=== PATIENT | female | born 1945 | race Caucasian/White ===

== ENCOUNTER 2025-05-13 03:09 | Emergency (ER) | payer MEDICARE, MEDICAID ==
[~2025-05-13] VITALS: Ht 165.1 cm; Wt 64.0 kg
[2025-05-13 03:10] VITALS: O2SAT 99
[2025-05-13] MEDS: LOPERAMIDE HCL 2MG CAPSULE PO ONE (03:57)
[2025-05-13] MEDS: AZITHROMYCIN 500 MG TABLET PO ONE (03:57)
[2025-05-13] MEDS: ONDANSETRON HCL 4MG/2ML INJ IV ONE (03:57)
[2025-05-13] MEDS: LACTATED RINGERS 1,000 ML IV SCH (03:58)
[2025-05-13] MEDS: KETOROLAC 15MG/ML VIAL IV ONE (03:58)
[2025-05-13 04:01] LABS: BASOPHILS % 0.2 % (0.0-2.0); EOSINOPHILS % 1.5 % (0.0-5.0); HEMATOCRIT. 39.9 % (36.0-48.0); HEMOGLOBIN. 13.4 g/dL (12.0-16.0); LYMPHOCYTES % 12.1 % (20.0-50.0); MEAN PLATELET VOLUME 6.8 fl (7.4-10.4); MONOCYTES % 10.9 % (2.0-8.0); NEUTROPHILS % 75.3 % (40.0-76.0); PLATELET 322 x1000/uL (130-400); RED BLOOD CELL COUNT 4.31 mill/uL (4.2-5.4); RED CELL DISTRIBUTION WIDTH 13.2 % (11.6-14.6)
[2025-05-13 04:15] LABS: CREATININE 1.1 mg/dL (0.6-1.0)
[2025-05-13 04:16] LABS: UREA NITROGEN BLOOD 18 mg/dL (9-23)
[2025-05-13 04:17] LABS: ASPARTATE AMINOTRANSFERASE 35 IU/L (<34); PHOSPHORUS 3.0 mg/dL (2.5-4.9)
[2025-05-13 04:18] LABS: BILIRUBIN TOTAL 1.0 mg/dL (0.1-1.0); PROTEIN TOTAL 7.2 g/dL (6.0-8.3)
[2025-05-13 05:30] VITALS: BP 143/69; PULSE 69; RESP 16; TEMP 36.7; O2SAT 97
[2025-05-13] MEDS ORDERED: ONDA-239 PO (05:40)
[2025-05-13] MEDS ORDERED: LOPE2CAP MT (05:40)
[2025-05-13] MEDS ORDERED: AZIT500T8 MT (05:40)
== END 2025-05-13 05:50 | disposition home or self-care (01) ==
LOC: ER 03:09
DX: R11.2 Nausea with vomiting, unspecified (principal); R19.7 Diarrhea, unspecified; E87.1 Hypo-osmolality and hyponatremia; I21.29 ST elevation (STEMI) myocardial infarction involving other sites; K21.9 Gastro-esophageal reflux disease without esophagitis; Z88.0 Allergy status to penicillin
CPT/HCPCS: 99284; 96374; 96361; 96375; 80053; 83690; 83735; 84100; 85025; 36415; J1885; J2405

== ENCOUNTER 2025-05-18 22:29 | Inpatient (IN) | payer MEDICARE, MEDICAID ==
[~2025-05-18] VITALS: Ht 154.9 cm; Wt 57.4 kg
[~2025-05-18 22:29] MED LIST: AZIT500T8 MT; LOPE2CAP MT; ONDA-239 PO
[2025-05-18 22:32] VITALS: O2SAT 93
[2025-05-18] MEDS: SODIUM CHLORIDE 0.9% 1,000 ML IV ONE (23:50)
[2025-05-18] MEDS: ACETAMINOPHEN 325MG TABLET PO ONE (23:58)
[2025-05-18] MEDS: CEFTRIAXONE 1GM/50ML 50 ML IV ONE (23:59)
[2025-05-19] MEDS: ONDANSETRON HCL 4MG/2ML INJ IV ONE
[2025-05-19] MEDS: MORPHINE SULFATE 4 MG/ML INJ (FOR IV/IM USE) IV ONE
[2025-05-19 00:14] LABS: CREATININE 0.7 mg/dL (0.6-1.0); UREA NITROGEN BLOOD 8 mg/dL (9-23)
[2025-05-19 00:16] LABS: ASPARTATE AMINOTRANSFERASE 28 IU/L (<34); BILIRUBIN DIRECT 0.3 mg/dL (<=3.0); BILIRUBIN TOTAL 0.9 mg/dL (0.1-1.0); PROTEIN TOTAL 6.8 g/dL (6.0-8.3)
[2025-05-19 00:26] LABS: BASOPHILS % 0.4 % (0.0-2.0); EOSINOPHILS % 0.3 % (0.0-5.0); HEMATOCRIT. 36.7 % (36.0-48.0); HEMOGLOBIN. 12.4 g/dL (12.0-16.0); LYMPHOCYTES % 7.7 % (20.0-50.0); MEAN PLATELET VOLUME 7.6 fl (7.4-10.4); MONOCYTES % 7.2 % (2.0-8.0); NEUTROPHILS % 84.4 % (40.0-76.0); PLATELET 417 x1000/uL (130-400); RED BLOOD CELL COUNT 4.07 mill/uL (4.2-5.4); RED CELL DISTRIBUTION WIDTH 12.4 % (11.6-14.6)
[2025-05-19 00:33] LABS: INR 1.0
[2025-05-19 02:48] LABS: CLARITY URINE CLEAR (CLEAR); COLOR URINE YELLOW (YELLOW); GLUCOSE URINE NEGATIVE (NEGATIVE); KETONES URINE NEGATIVE (NEGATIVE); LEUKOCYTE ESTERASE URINE NEGATIVE (NEGATIVE); NITRITE URINE NEGATIVE (NEGATIVE); OCCULT BLOOD URINE 1+ (NEGATIVE); PH URINE 7.0 (4.5-8.0); PROTEIN URINE NEGATIVE (NEGATIVE); SPECIFIC GRAVITY URINE 1.005 (1.005-1.030); UROBILINOGEN URINE 1.0 E.U./dL (0.2-1.0)
[2025-05-19] MEDS: MINERAL OIL ENEMA 133ML PR ONE (03:46)
[2025-05-19] MEDS: GLYCERIN ADULT SUPPOSITORY PR ONE (05:44)
[2025-05-19 05:50] LABS: BACTERIA URINE NONE SEEN; SQUAMOUS EPITHELIAL CELL URINE NONE SEEN /lpf (RARE/1+); WBC URINE 0-2 /hpf (0-2)
[2025-05-19 08:44] LABS: INFLUENZA TYPE A Presumptive Negative (Pres. Neg.); INFLUENZA TYPE B Presumptive Negative (Pres. Neg.); RESPIRATORY SYNCYTIAL VIRUS Not Detected (Not Detectd)
[2025-05-19 12:00] VITALS: BP 123/101; PULSE 85; RESP 20; TEMP 37.2; O2SAT 99
[2025-05-19 15:01] VITALS: BP 123/101; PULSE 85; RESP 20; TEMP 37.1964
[2025-05-19] MEDS ORDERED: IPRATROPIUM/ALBUTEROL 0.5-3(2.5)MG/3ML NEB HHN PRN (16:00)
[2025-05-19] MEDS ORDERED: ONDANSETRON HCL 4MG/2ML INJ IV PRN (16:00)
[2025-05-19 16:29] VITALS: BP 158/84; PULSE 78; RESP 20; TEMP 36.1; O2SAT 98
[2025-05-19] MEDS: DEXT 5%/0.45% NACL 1000ML 1,000 ML IV SCH (17:08)
[2025-05-19] MEDS: HYDROCODONE/ACETAMINOPHEN 5/325MG TABLET PO PRN (17:18)
[2025-05-19] MEDS: LEVOFLOXACIN 500MG PREMIX 100 ML IV SCH (17:18)
[2025-05-19] MEDS ORDERED: OMEP20TA23 PO (19:37)
[2025-05-19] MEDS ORDERED: LIP40 PO (19:37)
[2025-05-19 20:00] VITALS: BP 129/78; PULSE 87; RESP 18; TEMP 37.2; O2SAT 97
[2025-05-20] VITALS: BP 131/72; PULSE 84; RESP 18; TEMP 37.1; O2SAT 96
[2025-05-20 04:00] VITALS: BP 137/77; PULSE 85; RESP 20; TEMP 37; O2SAT 97
[2025-05-20 08:00] VITALS: BP 112/69; PULSE 85; RESP 20; TEMP 37.2; O2SAT 98
[2025-05-20 08:55] LABS: BASOPHILS % 0.3 % (0.0-2.0); EOSINOPHILS % 1.1 % (0.0-5.0); HEMATOCRIT. 35.7 % (36.0-48.0); HEMOGLOBIN. 11.9 g/dL (12.0-16.0); LYMPHOCYTES % 15.6 % (20.0-50.0); MEAN PLATELET VOLUME 7.4 fl (7.4-10.4); MONOCYTES % 12.5 % (2.0-8.0); NEUTROPHILS % 70.5 % (40.0-76.0); PLATELET 413 x1000/uL (130-400); RED BLOOD CELL COUNT 3.92 mill/uL (4.2-5.4); RED CELL DISTRIBUTION WIDTH 12.9 % (11.6-14.6)
[2025-05-20 09:29] LABS: CREATINE KINASE MB FRACTION < 0.5 ng/mL (0.5-3.6); TROPONIN I HIGH SENSITIVITY < 4 ng/L (3.0-34)
[2025-05-20 09:33] LABS: CREATININE 0.8 mg/dL (0.6-1.0); UREA NITROGEN BLOOD 7 mg/dL (9-23)
[2025-05-20] MEDS: ENOXAPARIN 40MG/0.4ML SYR SUBCUT SCH (10:01)
[2025-05-20 12:00] VITALS: BP 127/75; PULSE 83; RESP 20; TEMP 36.6; O2SAT 97
[2025-05-20] MEDS: PANTOPRAZOLE 40MG DR TABLET PO SCH (13:15)
[2025-05-20] MEDS: DOCUSATE SODIUM 100MG CAPSULE PO SCH (13:45)
[2025-05-20] MEDS: POLYETHYLENE GLYCOL 3350 (17GM) 1 DOSE PACK PO SCH (13:45)
[2025-05-20] MEDS ORDERED: BISACODYL 10MG SUPP PR PRN (13:45)
[2025-05-20 16:41] VITALS: BP 134/69; PULSE 74; RESP 20; TEMP 37.1; O2SAT 96
[2025-05-20 20:00] VITALS: BP 151/85; PULSE 89; RESP 20; TEMP 36.5; O2SAT 98
[2025-05-20] MEDS: SENNOSIDES 8.6MG TABLET PO SCH (21:00)
[2025-05-20 22:51] LABS: CREATINE KINASE MB FRACTION 0.7 ng/mL (0.5-3.6); TROPONIN I HIGH SENSITIVITY < 4 ng/L (3.0-34)
[2025-05-21] VITALS: BP 144/69; PULSE 87; RESP 20; TEMP 36.7; O2SAT 98
[2025-05-21 04:00] VITALS: BP 139/79; PULSE 80; RESP 20; TEMP 36.8; O2SAT 98
[2025-05-21 08:00] VITALS: BP 142/86; PULSE 84; RESP 20; TEMP 36.1; O2SAT 100
[2025-05-21 11:57] VITALS: BP 128/84; PULSE 75; RESP 18; TEMP 36.1; O2SAT 99
[2025-05-21] MEDS ORDERED: *PATIENT'S OWN MEDICATION STORAGE XX SCH (13:00)
[2025-05-21 16:00] VITALS: BP 131/89; PULSE 81; RESP 18; TEMP 36.3; O2SAT 100
[2025-05-21 20:00] VITALS: BP 133/66; PULSE 91; RESP 18; TEMP 36.1; O2SAT 95
[2025-05-21] MEDS: HYDROCORTISONE 2.5% RECTAL CREAM 28GM PR SCH (21:46)
[2025-05-21] MEDS: DOCUSATE SODIUM 250MG CAPSULE PO SCH (21:46)
[2025-05-22] VITALS: BP 122/67; PULSE 79; RESP 18; TEMP 36.2; O2SAT 96
[2025-05-22 04:00] VITALS: BP 126/72; PULSE 80; RESP 18; TEMP 36.3; O2SAT 98
[2025-05-22 08:00] VITALS: BP 130/61; PULSE 69; RESP 18; TEMP 36.3; O2SAT 100
[2025-05-22 12:00] VITALS: BP 142/57; PULSE 64; RESP 20; TEMP 36.4; O2SAT 99
[2025-05-22] MEDS: NA PHOS,M-B/NA PHOS,DI-BA ENEMA 118ML PR SCH (15:43)
[2025-05-22 16:00] VITALS: BP 139/71; PULSE 67; RESP 18; TEMP 36.4; O2SAT 100
[2025-05-22 20:00] VITALS: BP 122/78; PULSE 65; RESP 18; TEMP 36.3; O2SAT 100
[2025-05-23] VITALS: BP 128/74; PULSE 67; RESP 18; TEMP 36.4; O2SAT 100
[2025-05-23 04:00] VITALS: BP 122/70; PULSE 66; RESP 17; TEMP 36.3; O2SAT 100
[2025-05-23 07:44] LABS: BASOPHILS % 0.8 % (0.0-2.0); EOSINOPHILS % 4.0 % (0.0-5.0); HEMATOCRIT. 34.4 % (36.0-48.0); HEMOGLOBIN. 11.6 g/dL (12.0-16.0); LYMPHOCYTES % 36.0 % (20.0-50.0); MEAN PLATELET VOLUME 6.4 fl (7.4-10.4); MONOCYTES % 14.2 % (2.0-8.0); NEUTROPHILS % 45.0 % (40.0-76.0); PLATELET 454 x1000/uL (130-400); RED BLOOD CELL COUNT 3.80 mill/uL (4.2-5.4); RED CELL DISTRIBUTION WIDTH 12.6 % (11.6-14.6)
[2025-05-23 08:00] VITALS: BP 151/81; PULSE 90; RESP 18; TEMP 36.1; O2SAT 100
[2025-05-23 08:04] LABS: CREATININE 0.8 mg/dL (0.6-1.0); UREA NITROGEN BLOOD < 5 mg/dL (9-23)
[2025-05-23 12:00] VITALS: BP 136/70; PULSE 80; RESP 18; TEMP 36.1; O2SAT 99
[2025-05-23] MEDS ORDERED: SENN-362 PO (14:07)
[2025-05-23] MEDS ORDERED: LEVO-65 MT (14:07)
[2025-05-23] MEDS ORDERED: ANUHCC PR (14:07)
[2025-05-23 14:17] VITALS: BP 136/70; PULSE 80; RESP 18; TEMP 97
[2025-05-23 16:00] VITALS: BP 139/78; PULSE 87; RESP 18; TEMP 36.1; O2SAT 100
== END 2025-05-23 17:00 | disposition home or self-care (01) | DRG 395 ==
LOC: ER 22:29 → 7WST 05-19 01:55 → EDBEDREQ 05-19 02:00 → EDBEDREQTM 05-19 02:00 → EDBEDREQDT 05-19 02:00 → ENRESERV 05-19 10:27 → 7WST 05-22 09:21
PROVIDERS: ADMIT Internal Medicine; ATTEND Internal Medicine
DX: K62.89 Other specified diseases of anus and rectum (principal); K56.41 Fecal impaction; Z20.822 Contact with and (suspected) exposure to COVID-19; K44.9 Diaphragmatic hernia without obstruction or gangrene; K21.9 Gastro-esophageal reflux disease without esophagitis; D64.9 Anemia, unspecified; G89.29 Other chronic pain; Z90.710 Acquired absence of both cervix and uterus; Z80.0 Family history of malignant neoplasm of digestive organs; Z88.0 Allergy status to penicillin
CPT/HCPCS: 36415; 71045; 74018; 74176; 80048; 80076; 81003; 82550; 82553; 83605; 84145; 84484; 85025; 87420; 87426; 87493; 87804; 93005; 96365; 96375; 97161; 97166; 99291; J0696; J1650; J1956; J2270; J2405; J7030